=== PATIENT | male | born 1970 | race Caucasian/White ===

== ENCOUNTER 2020-06-20 10:26 | Emergency (ER) | payer OTHER ==
[~2020-06-20] VITALS: Ht 182.9 cm; Wt 104.3 kg
[2020-06-20] MEDS ORDERED: NORCO 5-325 TA1 EAC2 PO (11:05)
[2020-06-20] MEDS ORDERED: PERCOCET 5-3251 EACH PO (11:08)
[2020-06-20 11:15] VITALS: BP 136/104
== END 2020-06-20 11:15 | disposition home or self-care (01) ==
LOC: M.ERS 10:26
DX: S86.112A Strain of other muscle(s) and tendon(s) of posterior muscle group at lower leg level, left leg, initial encounter (principal); Z88.5 Allergy status to narcotic agent; Z88.2 Allergy status to sulfonamides; Z88.6 Allergy status to analgesic agent; Z88.8 Allergy status to other drugs, medicaments and biological substances; W18.39XA Other fall on same level, initial encounter; Y93.89 Activity, other specified; Y92.89 Other specified places as the place of occurrence of the external cause; Y99.8 Other external cause status